=== PATIENT | female | born 1950 | race Two or more races ===

== ENCOUNTER 2017-06-07 15:34 | Outpatient (CLI) | payer OTHER | END 2017-06-07 16:36 | disposition home or self-care (01) | LOC: RAD 15:34 | DX: M43.22 Fusion of spine, cervical region (principal) ==

== ENCOUNTER 2018-01-03 14:57 | Outpatient (CLI) | payer OTHER | END 2018-01-03 15:10 | disposition home or self-care (01) | LOC: SONOGRAMA 14:57 | DX: E03.8 Other specified hypothyroidism (principal); E04.2 Nontoxic multinodular goiter ==

== ENCOUNTER 2018-12-29 15:32 | Outpatient (CLI) | payer OTHER | END 2018-12-29 15:34 | disposition home or self-care (01) | LOC: RAD 15:32 | DX: S99.101A Unspecified physeal fracture of right metatarsal, initial encounter for closed fracture (principal); S99.101 Unspecified physeal fracture of right metatarsal; J45.998 Other asthma ==

== ENCOUNTER 2021-04-26 09:59 | Outpatient (CLI) | payer OTHER | END 2021-04-26 10:12 | disposition home or self-care (01) | LOC: NUCLEAR 09:59 | PROVIDERS: ATTEND Pediatrics Pediatric Cardiology | DX: I24.9 Acute ischemic heart disease, unspecified (principal); E87.4 Mixed disorder of acid-base balance; E04.1 Nontoxic single thyroid nodule; I11.9 Hypertensive heart disease without heart failure; G45.1 Carotid artery syndrome (hemispheric) ==

== ENCOUNTER 2021-04-26 11:06 | Outpatient (CLI) | payer OTHER | END 2021-04-26 11:11 | disposition home or self-care (01) | LOC: SONOGRAMA 11:06 | PROVIDERS: ATTEND Pediatrics Pediatric Cardiology | DX: I24.8 Other forms of acute ischemic heart disease (principal); E78.49 Other hyperlipidemia; E04.1 Nontoxic single thyroid nodule; I11.9 Hypertensive heart disease without heart failure ==

== ENCOUNTER 2021-08-18 10:07 | Emergency (ER) | payer OTHER ==
[~2021-08-18] VITALS: Ht 170.2 cm; Wt 89.4 kg
[2021-08-18] MEDS ORDERED: PRILOSEC2.5 MG PO (10:18)
[2021-08-18] MEDS ORDERED: SYNTHROID50 MCG PO (10:18)
[2021-08-18] MEDS ORDERED: MAGNESIUM200 MG PO (10:19)
[2021-08-18] MEDS ORDERED: VITAMIN C500 M5 PO (10:19)
[2021-08-18] MEDS ORDERED: FENOFIBRATE30 MG (10:20)
== END 2021-08-18 20:09 | disposition home or self-care (01) ==
LOC: ER 10:07
DX: K40.90 Unilateral inguinal hernia, without obstruction or gangrene, not specified as recurrent (principal); R10.31 Right lower quadrant pain

== ENCOUNTER 2021-11-17 08:00 | Outpatient (CLI) | payer OTHER ==
[~2021-11-17 08:00] MED LIST: FENOFIBRATE30 MG; MAGNESIUM200 MG PO; PRILOSEC2.5 MG PO; SYNTHROID50 MCG PO; VITAMIN C500 M5 PO
== END 2021-11-17 08:30 | disposition home or self-care (01) ==
LOC: PPH VACUNA 08:00
PROVIDERS: ATTEND Emergency Medicine Pediatric Emergency Medicine
DX: Z23 Encounter for immunization (principal)

== ENCOUNTER 2022-03-13 09:11 | Outpatient (CLI) | payer OTHER | END 2022-03-13 09:23 | disposition home or self-care (01) | LOC: TOM 09:11 | DX: K56.600 Partial intestinal obstruction, unspecified as to cause (principal); Z86.010 Personal history of colon polyps; Z12.11 Encounter for screening for malignant neoplasm of colon ==

== ENCOUNTER → 2022-09-24 | Outpatient (CLI) | payer OTHER | END | disposition home or self-care (01) | LOC: NUCLEAR 13:13 | PROVIDERS: ATTEND Specialist | DX: M81.0 Age-related osteoporosis without current pathological fracture (principal) ==

== ENCOUNTER 2023-02-04 08:56 | Emergency (ER) | payer OTHER ==
[~2023-02-04] VITALS: Ht 167.6 cm; Wt 82.1 kg
== END 2023-02-04 12:35 | disposition home or self-care (01) ==
LOC: ER 08:56
DX: R10.9 Unspecified abdominal pain (principal); I10 Essential (primary) hypertension; M19.09 Primary osteoarthritis, other specified site; E78.49 Other hyperlipidemia; K40.90 Unilateral inguinal hernia, without obstruction or gangrene, not specified as recurrent; K57.30 Diverticulosis of large intestine without perforation or abscess without bleeding

== ENCOUNTER 2023-09-04 05:50 | Day surgery (SDC) | payer OTHER ==
[2023-08-28 10:59] LABS: HEMATOCRIT 38.6 % (36.0-45.00); HEMOGLOBIN 12.7 g/dL (12.0-15.00); MEAN CORPUSCULAR HEMOGLOBIN 28.6 pg (27.00-32.0); MEAN CORPUSCULAR HGB CONC 32.9 g/dl (32.0-36.0); PLATELET COUNT 250 K/uL (150-450); RED BLOOD COUNT 4.43 M/uL (4.00-6.00); RED CELL DISTRIBUTION WIDTH 15.3 % (11.5-14.5)
[2023-08-28 11:23] LABS: INR 1.04; PARTIAL THROMBOPLASTIN TIME 31.8 SECONDS (22.0-34.0); PROTHROMBIN TIME 10.9 SECONDS (9.0-11.5)
[2023-08-28 11:23] LABS: PH,URINE 5.5 (5.0-8.0); URINE APPEARANCE Clear; URINE BILIRRUBIN Negative (NEGATIVE); URINE BLOOD Negative; URINE COLOR Yellow; URINE GLUCOSE Negative (NEGATIVE); URINE LEUKOCYTE Small; URINE NITRATE Negative; URINE PROTEIN Negative (NEGATIVE); URINE UROBILINOGEN 0.2 E.U./dl
[2023-08-28 11:27] LABS: URINE BACTERIA 841.6 uL (0.0-1933); URINE EPITHELIAL CELLS 7.7 uL (0.0-38.8); URINE RBC 9.4 uL (0.0-20.8); URINE WBC 20.2 uL (0.0-23.2)
[2023-08-28 11:30] LABS: CALCIUM 9.3 mg/dL (8.5-10.1); CREATININE SERUM 0.85 mg/dL (0.55-1.02); GFR 65.2; POTASSIUM 4.34 mEq/L (3.5-5.1)
[~2023-09-04 05:50] MED LIST changes: +CRESTOR10 MG PO; +PRILOSEC10 MG; +[UNRECOGNIZED DRUG - OTHER] MC
[2023-09-04] MEDS ORDERED: BUPIVACAINE HCL/PF 0.5% 30ML ML ONE (06:32)
[2023-09-04] MEDS ORDERED: ENOXAPARIN SODIUM 40 MG/0.4 ML SYRINGE SUBCUTANEO ONE ×2 (06:32→07:00)
[2023-09-04] MEDS ORDERED: METRONIDAZOLE/SODIUM CHLORIDE 500 MG/100 ML PIGGYBACK IV ONE ×2 (06:32→07:00)
[2023-09-04] MEDS ORDERED: CEFTRIAXONE SODIUM 2,000 MG VIAL ONE (06:32)
[2023-09-04] MEDS ORDERED: CEFTRIAXONE SODIUM 2,000 MG VIAL IV ONE (07:00)
[2023-09-04] MEDS ORDERED: BUPIVACAINE HCL/PF 0.5% 30ML ML IJ ONE (07:00)
[2023-09-04] MEDS ORDERED: NEURONTIN300 MG PO (10:16)
[2023-09-04] MEDS ORDERED: CELEBREX200MG PO (10:16)
[2023-09-04] MEDS ORDERED: PERCOCET 5-3251 EACH PO (10:16)
[2023-09-04] MEDS ORDERED: COLACE100 MG PO (10:16)
== END 2023-09-04 13:05 | disposition home or self-care (01) ==
LOC: CIR.AMB 05:50
PROVIDERS: ATTEND Surgery
DX: K40.90 Unilateral inguinal hernia, without obstruction or gangrene, not specified as recurrent (principal); Z20.822 Contact with and (suspected) exposure to COVID-19
CPT/HCPCS: 49650; C1781

== ENCOUNTER → 2024-09-25 13:36 | Outpatient (CLI) | payer OTHER ==
[~2024-09-25 13:36] MED LIST changes: +CELEBREX200MG PO; +COLACE100 MG PO; +NEURONTIN300 MG PO; +PERCOCET 5-3251 EACH PO
== END | disposition home or self-care (01) ==
LOC: NUCLEAR 13:00
PROVIDERS: ATTEND Specialist
DX: M81.0 Age-related osteoporosis without current pathological fracture (principal)